=== PATIENT | female | born 1950 | race Caucasian/White ===

== ENCOUNTER 2019-01-02 11:02 | Inpatient (IN) | payer OTHER ==
[~2019-01-02] VITALS: Ht 165.1 cm; Wt 96.2 kg
[2019-01-02 11:05] VITALS: BP 99/48
[2019-01-02] MEDS ORDERED: CARDIZEM CD120 MG PO (11:47)
[2019-01-02] MEDS ORDERED: ELIQUIS5 MG PO (11:47)
[2019-01-02] MEDS ORDERED: BENAZEPRIL 10 M10 MG PO (11:48)
[2019-01-02] MEDS ORDERED: FLECAINIDE ACET50 M1 PO (11:48)
[2019-01-02] MEDS ORDERED: PROZAC20 MG PO (11:49)
[2019-01-02] MEDS ORDERED: DOXEPIN 50MG CA50 M1 PO (11:49)
[2019-01-02] MEDS ORDERED: VITAMIN D250000 UNIT PO (11:50)
[2019-01-02] MEDS ORDERED: NORCO 10-325 T1 EACH PO (11:51)
[2019-01-02] MEDS ORDERED: PHENAZOPYRIDIN200 M2 PO (11:51)
[2019-01-02 15:25] LABS: HEMATOCRIT 36.1 % (37.0-47.0); HEMOGLOBIN 11.9 gm/dL (12.0-15.0); MCH 29.1 pg (26.0-34.0); MCHC 33.1 g/dL (28.0-37.0); MCV 88.1 fL (80.0-100.0); RBC 4.1 mil/uL (4.20-5.00); RDW 12.9 % (10.5-14.5); WBC 9.1 thou/uL (4.0-11.0)
[2019-01-02 15:34] LABS: CALCIUM 8.6 mg/dL (8.5-10.1); CREATININE 0.8 mg/dL (0.6-1.0); POTASSIUM 4.1 mmol/L (3.5-5.1)
[2019-01-02 15:41] LABS: ALBUMIN 3.6 g/dL (3.4-5.0); TOTAL BILIRUBIN 0.2 mg/dL (<0.1-1.0); TOTAL PROTEIN 7.2 g/dL (6.4-8.2)
[2019-01-02 15:43] VITALS: BP 149/82
[2019-01-02 15:45] LABS: APTT 29.1 Seconds (24.5-32.8)
[2019-01-02 16:03] LABS: PROTIME 10.6 Seconds (9.3-11.4)
[2019-01-02 16:50] VITALS: BP 142/72
[2019-01-02 20:03] VITALS: BP 140/64
[2019-01-03] VITALS (7 sets, daily range): BP systolic 133–154; BP diastolic 61–95
--- NOTE | 2019-01-03 05:29 | NUR ---
PT MAKING PROGRESS TOWARDS GOALS. PT INITALLY RATING PAIN IN LEFT WRIST/FOREARM 4/10. PT QUICKLY ESCALATED AND WAS AT 10/10 THROUGH THREE DOSES OF FENTANYL, A DOSE OF DILAUDID, DOSE OF TORADOL AND A DOSE OF PERCOCET. PT REPORTED THAT SHE HAS HAD SEVERAL "SPASMS" OF PAIN THAT WORSEN THE SITUATION. THIS AM PT REPORTING PAIN AT GOAL WHICH IS 4/10. ENCOURAGED TO CALL IF SHE SENSES THAT THE PAIN LEVEL IS RISING AGAIN. O2 AT 2L PER NC STARTED R/T AMOUNT OF NARCOTIC PAIN MEDICATION GIVEN. PT WAS ABLE TO WAKE APPROPRIATELY TO ANSWER QUESTIONS AND USE THE BATHROOM.
[2019-01-03 05:39] LABS: BASOPHILS 0.3 % (0.0-2.0); EOSINOPHILS 0.1 % (0.0-3.0); HEMATOCRIT 32.9 % (37.0-47.0); HEMOGLOBIN 10.9 gm/dL (12.0-15.0); LYMPHOCYTES 21.1 % (24.0-44.0); MCH 29.1 pg (26.0-34.0); MCHC 33.1 g/dL (28.0-37.0); MCV 87.8 fL (80.0-100.0); MONOCYTES 5.6 % (1.0-8.0); PLATELET COUNT 222 thou/uL (150-400); POLYS 72.9 % (36.0-66.0); RBC 3.75 mil/uL (4.20-5.00); WBC 8.2 thou/uL (4.0-11.0)
[2019-01-03 05:59] LABS: CALCIUM 8.7 mg/dL (8.5-10.1); CREATININE 0.6 mg/dL (0.6-1.0); MAGNESIUM 1.8 mg/dL (1.8-2.4); POTASSIUM 4.2 mmol/L (3.5-5.1)
--- NOTE | 2019-01-03 07:46 | EKG ---
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
--- NOTE | 2019-01-03 08:32 | HC ---
[facility] [place] [address] CONSULTATION Name: AALIYAH LEE Room #: 356-P ADM IN M.R.#: [id number] Admission: 01/02/19 Attend Phys: Ta Mohamud MD Discharge: Date of : 50 Report #: [id number] THIS REPORT FOR: //name// CC: Yodit Mohamud DATE OF SERVICE: 01/02/2019 CHIEF COMPLAINT: Left distal radius fracture. HISTORY OF PRESENT ILLNESS: This 68-year-old female fell injuring the left wrist. She has other minor injuries including some low back pain and some minor left elbow pain, no significant injuries are identified. The left wrist, however, reveals a badly comminuted and displaced fracture with significant displacement initially. This was evaluated in the Emergency Department and the fracture was improved in alignment with reduction under IV sedation. At this time, she is alert and oriented and accompanied by her . She notes she does have some chronic medical problems including fibromyalgia with chronic pain syndrome. She notes she routinely takes 50 mg of hydrocodone daily. She also has a history of atrial fibrillation. She has had recent corrective procedure, but apparently she is already back in AFib. She is on anticoagulation medication regimen. She denies any other significant medical problems. OBJECTIVE: She is alert and oriented and seems to understand the situation well. She seems to have good movement of the neck and back, but does complain of some chronic lower back discomfort extending out toward the left flank and left ribcage. There is no evidence of significant injury at this time. The right upper extremity reveals good alignment and range of motion without significant discomfort. Both lower extremities also reveal satisfactory alignment and range of motion without significant discomfort. The left upper extremity is well protected in a lower arm fiberglass splint. The wrist and hands seem to be in acceptable position and she demonstrates satisfactory movement of the digits. There is mild dysesthesia consistent with some neuropraxia, but in general neurologic and vascular status appear to be intact. DIAGNOSTIC DATA: X-rays of the left wrist reveal a comminuted fracture of the distal radius with initially complete dorsal displacement. Subsequent x-rays reveal a satisfactory reduction with much better alignment, but with still some dorsal tilt and displacement. IMPRESSION: I have discussed at some length with the patient and her the nature of this injury and treatment options. I would favor surgical [address] [address] CONSULTATION Name: AALIYAH LEE JULIA Room #: 356-P [facility] IN M.R.#: [id number] Admission: 01/02/19 Attend Phys: Ta Mohamud MD Discharge: Date of : 50 Report #: [id number] management with a volar locking plate. She agrees and would like to proceed with surgery. We will hopefully proceed tomorrow pending OR availability. <ELECTRONICALLY SIGNED> By: Chris Gorman MD 01/03/19 0832 1736 [id number] Chris Gorman MD /nt
[2019-01-03 09:11] LABS: URINE BILIRUBIN NEGATIVE (Negative); URINE BLOOD NEGATIVE (Negative); URINE CLARITY CLEAR; URINE COLOR YELLOW; URINE GLUCOSE-RANDOM* NEGATIVE (Negative); URINE KETONES NEGATIVE (Negative); URINE LEUKOCYTES-REFLEX NEGATIVE (Negative); URINE NITRITE-REFLEX NEGATIVE (Negative); URINE PROTEIN (DIPSTICK) NEGATIVE (Negative); URINE SPECIFIC GRAVITY <= 1.005 (1.005-1.035); URINE UROBILINOGEN 0.2 E.U./dl (0.2-1.0)
--- NOTE | 2019-01-03 10:40 | NUR ---
chart review, cm visited with pt and spouse at bedside. pt goes by donell, a & o x 4 pleasant and able to make needs know. intro to cm and transition of care pt reported " live with at home, everything on main level, wayne works from home and does laundry. independent , no dme needs. no past hh or rehab. hope can go home after surgery today"/donell. no anticipated needs. dcp home
--- NOTE | 2019-01-03 16:37 | NUR ---
ASSUMED CARE OF PT AT 0700. PT ALERT AND ORIENTED X4 COMPLAINING OF 10/10 PAIN IN RUE. S/P ORIF. VITALS STABLE. 94-95% ON ROOM AIR. AFIB ON TELEMETRY - HR 90-100's. OK FOR DISCHARGE WHEN PAIN CONTROLLED PER DR CAMP.
--- NOTE | 2019-01-04 05:53 | NUR ---
PATIENT IS PROGRESSING RAPIDLY IN CARE PLAN. VITAL SIGNS STABLE WITH PATIENT HAVING NO COMPLAINTS OF NAUSEA. PATIENT DID COMPLAIN OF PAIN FREQUENTLY IN LEFT WRIST WHICH WAS TREATED APPROPRIATELY THROUGH PRN MEDICATIONS AND NON PHARMACOLOGICAL INTERVENTION. UP MULTIPLE TIMES TO BATHROOM WITH ASSISTANCE INCIDENT FREE. PATIENT IS ANXIOUS FOR POTENTIAL DISCHARGE SOON. CONTINUE PLAN OF CARE.
[2019-01-04 06:01] VITALS: BP 136/82
[2019-01-04 07:45] VITALS: BP 148/81
[2019-01-04 09:33] VITALS: BP 148/81
--- NOTE | 2019-01-04 09:37 | NUR ---
PT ALERT AND ORIENTED TIMES FOUR. VSS, PT C/O OF PAIN IN LEFT ARM PRN PAIN MEDICATIONS GIVEN WITH GOOD RELEIF. LEFT ARM STILL IN SURGICAL DRESSING C/D/I. PT TOLERATES MEDS AND MEALS. PLAN TO DISCHARGE THIS MORNING. PT PROGRESSING TOWRADS POC GOALS.
--- NOTE | 2019-01-06 07:49 | O ---
[facility] [place] [address] OPERATIVE REPORT Name: AALIYAH LEE JULIA Room #: 356-P [facility] IN M.R.#: [id number] Admission: 01/02/19 Attend Phys: Ta Mohamud MD Discharge: 01/04/19 Date of : 50 Report #: [id number] THIS REPORT FOR: //name// CC: Yodit Mohamud PREOPERATIVE DIAGNOSIS: Complex comminuted left distal radius fracture. POSTOPERATIVE DIAGNOSIS: Complex comminuted left distal radius fracture. PROCEDURE: Open reduction and internal fixation of left distal radius fracture. SURGEON: Chris Gorman MD INDICATIONS: This 68-year-old female fell injuring the left wrist. This resulted in a complex comminuted distal radius fracture with complete displacement of the distal fragments. This was reduced in the Emergency Department in a satisfactory fashion. We discussed treatment options and elected to go ahead with surgical repair using a volar locking plate. DESCRIPTION OF PROCEDURE: The patient was taken to the operating room where she was placed under general anesthesia. Prophylactic intravenous antibiotics were administered. The left arm and hand were meticulously prepped and draped. The arm was exsanguinated with an Esmarch bandage. An arm tourniquet was applied and inflated to 225 mmHg. A volar longitudinal skin incision was made. This was carried through the volar fascia and the pronator was elevated from the volar aspect of the distal radius. Neurovascular structures were protected. The fracture was found to be comminuted and unstable. It was gently reduced in satisfactory position. An Acumed volar locking plate was then applied. This was adjusted with C-arm visualization. Seven distal screws were placed with satisfactory purchase of the distal fragments. Two screws were placed proximally with satisfactory purchase. C-arm views revealed satisfactory alignment and fixation. The tourniquet was then deflated. Satisfactory hemostasis was established. The fascia was closed with multiple 3-0 Monocryl sutures. The subcutaneous tissues were also closed with 3-0 Monocryl. The skin was closed with 4-0 Prolene supplemented with Steri-Strips. A sterile dressing and a supportive plaster splint was placed holding the wrist in neutral position. The patient was awakened and returned to recovery room in good condition. She is hoping for discharge home from the hospital today, pending her pain management. We can proceed with discharge and will plan rest, elevation over the coming week and then follow up in my office. <ELECTRONICALLY SIGNED> By: Chris Gorman MD 01/06/19 0749 1412 1420 Chris Gorman MD /nt
== END 2019-01-04 10:46 | disposition home or self-care (01) | DRG 512 ==
LOC: ER 11:02 → 3W 14:45 → EROBS 14:45 → 3W 16:51
PROVIDERS: Emergency Medicine; Nurse Practitioner; ADMIT Internal Medicine
PROC: 0PSLXZZ Reposition Left Ulna, External Approach (ICD-10-PCS; principal; 2019-01-02)
PROC: 0PSJXZZ Reposition Left Radius, External Approach (ICD-10-PCS; principal; 2019-01-02)
PROC: 0PSJ04Z Reposition Left Radius with Internal Fixation Device, Open Approach (ICD-10-PCS; 2019-01-03)
DX: S52.502A Unspecified fracture of the lower end of left radius, initial encounter for closed fracture (principal); S52.612A Displaced fracture of left ulna styloid process, initial encounter for closed fracture; I10 Essential (primary) hypertension; M54.5 Low back pain; M89.29 Other disorders of bone development and growth, multiple sites; M79.7 Fibromyalgia; I48.91 Unspecified atrial fibrillation; W01.0XXA Fall on same level from slipping, tripping and stumbling without subsequent striking against object, initial encounter; Z79.01 Long term (current) use of anticoagulants; Z79.899 Other long term (current) drug therapy; Y93.89 Activity, other specified; Z88.5 Allergy status to narcotic agent; Y92.480 Sidewalk as the place of occurrence of the external cause; Y99.8 Other external cause status
CPT/HCPCS: 10879; 50010; 50101; 50386; 51735; 55430; 56526; 56527; 57092; 57178; 62110; 62900; 70005